=== PATIENT | female | born 2000 | race American Indian/Alaskan Native ===

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

== ENCOUNTER 2018-05-23 11:17 | Day surgery (SDC) | payer MEDICAID ==
[2018-05-20 08:43] VITALS: BMI 21.6
[2018-05-23 12:20] LABS: HEMOGLOBIN 12.9 g/dL (11.0-16.0); MEAN CORPUSCULAR HEMOGLOBIN 28.1 pg (27.0-31.0); MEAN CORPUSCULAR HGB CONC 33.5 g/dL (33.0-37.0); MEAN PLATELET VOLUME 8.2 fL (7.2-11.7); RBC 4.61 Mil/uL (3.80-5.20); RED CELL DISTRIBUTION WIDTH 14.8 % (11.5-14.5); WHITE BLOOD COUNT 5.4 K/uL (4.8-10.8)
[2018-05-23 12:22] LABS: MEAN CELL VOLUME 83.7 fL (81.0-99.0)
[2018-05-23 12:32] LABS: BLOOD UREA NITROGEN 11 mg/dL (7-17); CALCIUM 9.8 mg/dl (8.6-10.4); GFR NON-AFRICAN AMERICAN > 60
[2018-05-23 12:35] LABS: SQUAMOUS EPITHIAL 1 /hpf (0-5); URINE BILIRUBIN NEGATIVE (NEGATIVE); URINE BLOOD NEGATIVE (NEGATIVE); URINE CLARITY Clear (Clear); URINE COLOR Yellow (YELLOW); URINE GLUCOSE (UA) NORMAL (Normal); URINE LEUKOCYTE ESTERASE NEG Leu/uL (Negative); URINE PROTEIN NEGATIVE (NEGATIVE); URINE UROBILINOGEN NORMAL mg/dL (0.2-1.0)
[2018-05-23] MEDS ORDERED: ceFAZolin IV 1 gm in Dextrose 1 GM/50 ML BAG IVPB ONE (14:40)
[2018-05-23] MEDS ORDERED: Bupivacaine 0.25% 20 ML INJ IJ ONE (14:40)
[2018-05-23] MEDS ORDERED: Propofol 10 mg/ml Inj (20 ML) ONE (14:56)
[2018-05-23] MEDS ORDERED: Midazolam 2 MG/2 ML VIAL ONE (14:56)
[2018-05-23] MEDS ORDERED: Oxycodone/Acetaminophen 5/325 mg Tab PO PRN (15:56)
[2018-05-23 16:19] VITALS: O2SAT 100
[2018-05-23 17:06] VITALS: BP 108/70; PULSE 60; RESP 18; TEMP 97.9
--- NOTE | 2018-05-24 06:19 | OP ---
PROCEDURE DATE: 05/23/2018 PREOPERATIVE DIAGNOSIS: Large mass in the right axilla. POSTOPERATIVE DIAGNOSIS: Large mass in the right axilla. PROCEDURE PERFORMED: Wide and deep excision (radical resection) of 5 cm axillary mass. SURGEON: Bjorn Mccullough MD CRYSTAL SLICER: General. ESTIMATED BLOOD LOSS: 30 mL. POSTOPERATIVE CONDITION: Stable. GROSS FINDINGS: The patient had a 5 cm mass in the right axilla. It was excised for deep excision. DESCRIPTION OF PROCEDURE: The patient was taken to the operating room. General anesthesia was administered. The right axilla, shoulder, and chest wall were prepped and draped. A generous elliptical incision was made into the axillary site, and it was dissected free into the axillary fascia. Bleeding was controlled using a Bovie, and a larger axillary blood vessel was repaired with Prolene. Generous tissue flaps were raised, including full thickness flaps and along with counter incisions being made. An advancement flap closure was performed, approximately 32 sq cm in size. This was done in multiple layers in Monocryl, subcuticular Monocryl, and glue. The patient tolerated the procedure well and returned to recovery room in stable condition. Bjorn Mccullough MD
== END 2018-05-23 17:41 | disposition home or self-care (01) ==
LOC: C.SDS 11:17
PROVIDERS: ATTEND Surgery
DX: L73.2 Hidradenitis suppurativa (principal)
CPT/HCPCS: 11451; 14301; 36415; 80048; 81001; 85027; 88307; J0690; J2250; J2704; J3010

== ENCOUNTER 2018-09-18 09:31 | Outpatient (CLI) | payer MEDICAID | END 2018-09-18 09:32 | disposition home or self-care (01) | LOC: C.LAB 09:31 ==

== ENCOUNTER 2018-09-19 11:17 | Day surgery (SDC) | payer MEDICAID ==
[2018-05-20 08:43] VITALS: BMI 21.6
[2018-09-19] MEDS ORDERED: Midazolam 2 MG/2 ML VIAL ONE (14:26)
[2018-09-19] MEDS ORDERED: Propofol 10 mg/ml Inj (20 ML) ONE (14:27)
[2018-09-19] MEDS ORDERED: ceFAZolin 1 gm in NS 1 GM/100 ML BAG IVPB ONE (14:31)
[2018-09-19] MEDS ORDERED: Bupivacaine 0.25% 20 ML INJ IJ ONE (14:49)
[2018-09-19] MEDS ORDERED: Oxycodone/Acetaminophen 5/325 mg Tab PO PRN (14:50)
[2018-09-19] MEDS ORDERED: HYDROmorphone 0.5 mg/0.5 ml ISec IVP PRN (15:05)
[2018-09-19 15:20] VITALS: O2SAT 100
[2018-09-19 16:38] VITALS: RESP 18; TEMP 98
[2018-09-19 17:26] VITALS: BP 100/60; PULSE 63
--- NOTE | 2018-09-20 05:39 | OP ---
PROCEDURE DATE: 09/19/2018 PREOPERATIVE DIAGNOSIS: Left axillary neoplasm. POSTOPERATIVE DIAGNOSIS: Left axillary neoplasm. PROCEDURE PERFORMED: Wide and deep excision (radical resection) of 5 cm left axillary neoplasm with advancement flap closure. SURGEON: Bjorn Mccullough MD ANESTHESIA: General. ESTIMATED BLOOD LOSS: 30 mL. POSTOPERATIVE CONDITION: Stable. INDICATIONS FOR SURGERY: This is a 18-year-old female with a 5 cm left shoulder and axillary mass, who will now undergo wide and deep excision. DESCRIPTION OF PROCEDURE: The patient was taken to the operating room. General anesthesia was administered. The left axilla and shoulder area were prepped and draped, and a generous elliptical incision was made surrounding the mass and was dissected into the axillary fascia, and muscle was removed. Bleeding was controlled using the Bovie. A larger branch of the axillary artery was isolated and repaired with Prolene as it had been noted to be bleeding vigorously. Blood flow was restored and documented by Doppler. The wound was irrigated with copious amounts of saline solution. Generous full-thickness tissue flaps were raised including muscle and fascia, and a 24 sq cm advancement flap closure was performed with multiple layers of Monocryl, subcuticular Monocryl and glue. The patient tolerated the procedure well and was returned to the recovery room in stable condition. Bjorn Mccullough MD
== END 2018-09-19 17:29 | disposition home or self-care (01) ==
LOC: C.SDS 11:17
PROVIDERS: ATTEND Surgery
DX: D48.7 Neoplasm of uncertain behavior of other specified sites (principal); L73.2 Hidradenitis suppurativa
CPT/HCPCS: 11406; 17999; 88307; J0690; J2250; J2704; J3010